=== PATIENT | male | born 1945 | race Caucasian/White ===

== ENCOUNTER 2019-06-16 10:47 | Day surgery (SDC) | payer OTHER ==
[~2019-06-16 10:47] MED LIST: Bupivacaine 0.5% 10 ML SDV ONE; Bupivacaine 0.5% 30 ML SDV ONE; Lactated Ringers 1,000 ML IV SCH; ceFAZolin 2 GM in Premix Bag 1 BAG IV SCH
[2019-06-16] MEDS ORDERED: fentaNYL 100 MCG/2 ML SDV ONE (12:18)
[2019-06-16] MEDS ORDERED: Propofol 200 MG/20 ML SDV ONE (12:18)
[2019-06-16] MEDS ORDERED: Ondansetron 4 MG/2 ML SDV ONE (12:19)
[2019-06-16] MEDS ORDERED: Dexamethasone 4 MG/ML 5 ML MDV ONE (12:19)
[2019-06-16] MEDS ORDERED: Midazolam 1 MG/ML 2 ML SDV ONE (12:19)
--- NOTE | 2019-06-16 12:20 | PCM.PREANE ---
Preanesthetic Assessment - Anesthesia/Transfusion/Family Hx Anesthesia History: Prior Anesthesia Without Reaction Family History of Anesthesia Reaction: No Transfusion History: No Prior Transfusion(s) - Review of Systems General: No Symptoms Pulmonary: No Symptoms Cardiovascular: No Symptoms Neurological: No Symptoms - Physical Assessment NPO Status Date: 06/15/19 Vital Signs: Last Vital Signs Temp 97.5 F 06/16/19 11:12 Pulse 94 06/16/19 11:12 Resp 16 06/16/19 11:12 BP 139/74 06/16/19 11:12 Pulse Ox 97 06/16/19 11:12 Height: 5 ft 7 in Weight: 112.037 kg ASA Class: 3 Mental Status: Alert & Oriented x3 Airway Class: Mallampati = 3 (PMH: dm2- not taking metformin, trying diet controll, htn, hld, JASPAL- not yet fit with CPAP mask- is at high risk for postoperative respiratory complications, hyperuricemia, [id number]) Dentition: Reports: Broken Tooth/Teeth, Missing Tooth/Teeth, Caries ROM/Head Extension: Full Lungs: Clear to Auscultation, Normal Respiratory Effort Cardiovascular: Regular Rate, Regular Rhythm - Allergies Allergies/Adverse Reactions: Allergies Allergy/AdvReac Type Severity Reaction Status Date / Time No Known Allergies Allergy Verified 06/11/19 11:46 - Blood Blood Available: No - Anesthesia Plan Pre-Op Medication Ordered: None - Acknowledgements Anesthesia Type Planned: Spinal Pt an Appropriate Candidate for the Planned Anesthesia: Yes Alternatives and Risks of Anesthesia Discussed w Pt/Guardian: Yes Pt/Guardian Understands and Agrees with Anesthesia Plan: Yes Additional Comments: anes prob list: dm2- on metformin, htn, hld, JASPAL by polysomnography- has been refered for CPAP equipment, CKD3-eGFR=54, plan: spinal with sedation PreAnesthesia Questionnaire HEENT History: Reports: Hard of Hearing, Other (See Below) Other HEENT History: uses reading glasses, has hearing aides but doesn't wear them Cardiovascular History: Reports: Hypertension, Other (See Below) Other Cardiovascular History: possible old [place] per EKG Respiratory History: Reports: Sleep Apnea Other Respiratory History: was just tested for sleep apnea- will not receive a CPAP until next month Gastrointestinal History: Reports: None Musculoskeletal History: Reports: Fracture, Gout Other Musculoskeletal History: hx of fx finger Neurological History: Reports: Migraines Other Neuro History: migraines as a child- not since Psychiatric History: Reports: Depression Endocrine/Metabolic History: Reports: Obesity/BMI 30+ Other Endocrine/Metabolic History: states "borderline diabetic" diet controlled - Past Surgical History GI Surgical History: Reports: Appendectomy - SUBSTANCE USE Smoking Status *Q: Former Smoker Tobacco Use Within Last Twelve Months: No Days Per Week of Alcohol Use: 7 Number of Drinks Per Day: 3 Total Drinks Per Week: 21 Recreational Drug Use History: No - HOME MEDS Home Medications: Home Meds Allopurinol [Zyloprim] 300 mg PO DAILY 06/16/19 [History] Losartan [Cozaar] 25 mg PO DAILY 06/16/19 [History] Meloxicam [Mobic] 15 mg PO DAILY 06/16/19 [History] [place]-3/DHA/Epa/Fish Oil [Fish Oil 1,000 mg Softgel] 1,000 mg PO BID 06/16/19 [ History] Simvastatin 80 mg PO DAILY 06/16/19 [History] Testosterone 20.25 mg TOP DAILY 06/16/19 [History] amLODIPine Besylate [Amlodipine Besylate] 10 mg PO DAILY 06/16/19 [History] - CURRENT (IN HOUSE) MEDS Current Meds: Current Medications Cefazolin Sodium/Dextrose 2 gm (/ Premix) 50 mls @ 100 mls/hr IV ONETIME ENRIQUE Lactated Ringer's (Ringers, Lactated) 1,000 mls @ 100 mls/hr IV ASDIRECTED ENRIQUE Last Admin: 06/16/19 11:18 Dose: 100 mls/hr Discontinued Medications Bupivacaine HCl (Marcaine 0.5%) Confirm Administered Dose 30 ml .ROUTE .STK-MED ONE Stop: 06/16/19 07:38 Bupivacaine HCl (Sensorcaine-Mpf 0.5%) Confirm Administered Dose 10 ml .ROUTE .STK-MED ONE Stop: 06/16/19 08:51 Tranexamic Acid (Cyklokapron) 2,000 mg IV ONETIME ONE Stop: 06/16/19 11:31 Tranexamic Acid (Cyklokapron) Confirm Administered Dose 2,000 mg .ROUTE .STK- MED ONE Stop: 06/16/19 08:51
[2019-06-16] MEDS ORDERED: Sodium Chloride 0.9% 0 ML ONE (12:23)
[2019-06-16] MEDS ORDERED: ceFAZolin 1 GM Vial ONE (12:23)
== END 2019-06-16 12:45 | disposition home or self-care (01) ==
LOC: MW.MS 10:47 → MW.SDS 10:47 → UNDOADMIN 10:47 → UNDODISIN 12:45 → MW.SDS 12:45
PROVIDERS: ATTEND Orthopaedic Surgery
DX: M16.11 Unilateral primary osteoarthritis, right hip (principal); E11.9 Type 2 diabetes mellitus without complications; I10 Essential (primary) hypertension; E78.5 Hyperlipidemia, unspecified; G47.33 Obstructive sleep apnea (adult) (pediatric); M10.9 Gout, unspecified; G43.909 Migraine, unspecified, not intractable, without status migrainosus; F32.9 Major depressive disorder, single episode, unspecified; E66.9 Obesity, unspecified; Z87.891 Personal history of nicotine dependence; Z53.8 Procedure and treatment not carried out for other reasons; Z79.84 Long term (current) use of oral hypoglycemic drugs; Z68.38 Body mass index [BMI] 38.0-38.9, adult
CPT/HCPCS: 36415; 86850; 86900; 86901; J7120; J0690; J1100; J2001; J2250; J2405; J2704; J3010; J3490

== ENCOUNTER 2019-09-01 06:36 | Inpatient (IN) | payer OTHER ==
[2019-09-01] MEDS ORDERED: Propofol 200 MG/20 ML SDV ONE ×2 (06:56→09:04)
[2019-09-01] MEDS ORDERED: fentaNYL 100 MCG/2 ML SDV ONE (06:57)
[2019-09-01] MEDS ORDERED: ceFAZolin 2 GM in Premix Bag 1 BAG IV SCH (07:00)
[2019-09-01] MEDS ORDERED: ceFAZolin 1 GM Vial ONE (07:01)
--- NOTE | 2019-09-01 07:08 | PCM.PREANE ---
Preanesthetic Assessment - Anesthesia/Transfusion/Family Hx Anesthesia History: Prior Anesthesia Without Reaction Family History of Anesthesia Reaction: No Transfusion History: No Prior Transfusion(s) Intubation History: Unknown - Review of Systems General: No Symptoms Pulmonary: No Symptoms Cardiovascular: No Symptoms Gastrointestinal: No Symptoms Neurological: No Symptoms Other: Reports: None - Physical Assessment Vital Signs: Last Vital Signs Temp 36.6 C 09/01/19 06:53 Pulse 79 09/01/19 06:53 Resp 16 09/01/19 06:53 BP 154/90 H 09/01/19 06:53 Pulse Ox 96 09/01/19 06:53 ASA Class: 3 Mental Status: Alert & Oriented x3 Airway Class: Mallampati = 3 Dentition: Reports: Broken Tooth/Teeth (multiple), Missing Tooth/Teeth (multiple ) Thyro-Mental Finger Breadths: 2 Mouth Opening Finger Breadths: 2 ROM/Head Extension: Limited/Partial Lungs: Clear to Auscultation, Normal Respiratory Effort Cardiovascular: Regular Rate, Regular Rhythm - Allergies Allergies/Adverse Reactions: Allergies Allergy/AdvReac Type Severity Reaction Status Date / Time lisinopril Allergy Cannot Verified 08/26/19 12:07 Remember - Blood Blood Available: No - Anesthesia Plan Pre-Op Medication Ordered: None - Acknowledgements Anesthesia Type Planned: Spinal (general anesthesia problems) Pt an Appropriate Candidate for the Planned Anesthesia: Yes Alternatives and Risks of Anesthesia Discussed w Pt/Guardian: Yes Pt/Guardian Understands and Agrees with Anesthesia Plan: Yes PreAnesthesia Questionnaire HEENT History: Reports: Hard of Hearing, Other (See Below) Other HEENT History: uses reading glasses, has hearing aides but doesn't wear them Cardiovascular History: Reports: High Cholesterol, Hypertension, Other (See Below) Other Cardiovascular History: possible old [place] per EKG Respiratory History: Reports: Sleep Apnea Other Respiratory History: uses CPAP Gastrointestinal History: Reports: None Genitourinary History: Reports: BPH Musculoskeletal History: Reports: Back Pain, Chronic, Fracture, Gout Other Musculoskeletal History: hx of fx finger Neurological History: Reports: Migraines Other Neuro History: migraines as a child- not since Psychiatric History: Reports: Depression Endocrine/Metabolic History: Reports: Diabetes, Type II, Obesity/BMI 30+ Other Endocrine/Metabolic History: states "borderline diabetic" diet controlled - Past Surgical History Head Surgeries/Procedures: Reports: None GI Surgical History: Reports: Appendectomy - SUBSTANCE USE Smoking Status *Q: Former Smoker Tobacco Use Within Last Twelve Months: No Recreational Drug Use History: No - HOME MEDS Home Medications: Home Meds Losartan [Cozaar] 25 mg PO QAM 06/16/19 [History] Meloxicam [Mobic] 15 mg PO DAILY 06/16/19 [History] [place]-3/DHA/Epa/Fish Oil [Fish Oil 1,000 mg Softgel] 2,000 mg PO BID 06/16/19 [ History] Simvastatin 40 mg PO BEDTIME 06/16/19 [History] Testosterone 20.25 mg TOP DAILY 06/16/19 [History] allopurinoL [Zyloprim] 300 mg PO DAILY 06/16/19 [History] amLODIPine Besylate [Amlodipine Besylate] 10 mg PO BEDTIME 06/16/19 [History] Aspirin [Adult Low Dose Aspirin EC] 81 mg PO DAILY 08/26/19 [History] Terazosin [Hytrin] 0 cap PO BEDTIME 08/26/19 [History] - CURRENT (IN HOUSE) MEDS Current Meds: Current Medications Cefazolin Sodium/Dextrose 2 gm (/ Premix) 50 mls @ 100 mls/hr IV ONETIME ENRIQUE Lactated Ringer's (Ringers, Lactated) 1,000 mls @ 100 mls/hr IV ASDIRECTED ENRIQUE Tranexamic Acid (Cyklokapron) 2,000 mg IV ONETIME ONE Stop: 09/01/19 07:01 Discontinued Medications Fentanyl (Sublimaze) Confirm Administered Dose 100 mcg .ROUTE .STK-MED ONE Stop: 09/01/19 06:58 Propofol (Diprivan 20 Ml) Confirm Administered Dose 400 mg .ROUTE .STK-MED ONE Stop: 09/01/19 06:57
[2019-09-01] MEDS ORDERED: Phenylephrine/Normal Saline 100 MCG/ML 10 ML Syringe ONE (07:09)
[2019-09-01] MEDS: Lactated Ringers 1,000 ML IV SCH ×3 (07:17→23:55)
[2019-09-01] MEDS ORDERED: Midazolam 1 MG/ML 2 ML SDV ONE ×2 (07:18)
[2019-09-01] MEDS ORDERED: Ondansetron 4 MG/2 ML SDV ONE (07:18)
[2019-09-01 08:01] LABS: CARBON DIOXIDE,CO2 28.3 mmol/L (21.0-32.0); POTASSIUM,K 4.5 mmol/L (3.5-5.1)
[2019-09-01] MEDS ORDERED: Dermabond Prineo 1 Tube TOP ONE (08:44)
[2019-09-01] MEDS ORDERED: fentaNYL 100 MCG/2 ML SDV IVPUSH PRN (08:47)
--- NOTE | 2019-09-01 09:45 | PCM.OPNOTE ---
- General Post-Op/Procedure Note Date of Surgery/Procedure: 09/01/19 Operative Procedure(s): right anterior total hip arthroplasty Pre Op Diagnosis: right hip osteoarthritis Post-Op Diagnosis: same Anesthesia Technique: Moderate Sedation, Spinal Primary Surgeon: Matthew Maravilla Mai Operations Director: Selam Sanders Pathology: femoral head EBL in mLs: 300 Complications: none Condition: Good
[2019-09-01] MEDS ORDERED: Docusate Sodium 100 MG Cap PO PRN (10:01)
[2019-09-01] MEDS ORDERED: Ondansetron 4 MG/2 ML SDV IVPUSH PRN (10:01)
[2019-09-01] MEDS ORDERED: diphenhydrAMINE 25 MG Cap PO PRN (10:01)
[2019-09-01] MEDS ORDERED: Sodium Chloride 0.9% 2.5 ML Syringe FLUSH PRN (10:01)
[2019-09-01] MEDS ORDERED: Aluminum Hydroxide/Magnesium Hydroxide/Simethicone Susp 30 ML Cup PO PRN (10:01)
[2019-09-01] MEDS ORDERED: Sodium Chloride 0.9% 10 ML Syringe FLUSH PRN (10:01)
[2019-09-01] MEDS ORDERED: Bisacodyl 10 MG Supp RECTAL PRN (10:01)
[2019-09-01] MEDS ORDERED: Acetaminophen/HYDROcodone 325-7.5 MG Tab PO PRN (10:07)
--- NOTE | 2019-09-01 10:45 | PCM.POSTAN ---
POST ANESTHESIA ASSESSMENT - MENTAL STATUS Mental Status: Alert, Oriented - VITAL SIGNS Vital Signs: Last Vital Signs Temp 36.2 C 09/01/19 09:55 Pulse 75 09/01/19 10:31 Resp 13 09/01/19 10:31 BP 102/61 09/01/19 10:31 Pulse Ox 95 09/01/19 10:31 - RESPIRATORY Respiratory Status: Respiratory Rate WNL, Airway Patent, O2 Saturation Stable - CARDIOVASCULAR CV Status: Pulse Rate WNL, Blood Pressure Stable - GASTROINTESTINAL GI Status: No Symptoms - PAIN Pain Score: 0 - POST OP HYDRATION Hydration Status: Adequate & Stable - OBSERVATIONS Free Text/Narrative:: No anesthesia problems
[2019-09-01] MEDS: Ketorolac 15 MG/ML SDV IVPUSH SCH ×3 (11:02→23:13)
[2019-09-01] MEDS ORDERED: LORazepam 2 MG/ML SDV IVPUSH PRN (11:08)
--- NOTE | 2019-09-01 11:33 | PCM.HP.2 ---
H&P History of Present Illness - General Date of Service: 09/01/19 Admit Problem/Dx: Admission Diagnosis/Problem Admission Diagnosis/Problem Hip replacement planned Source of Information: Patient, Old Records History Limitations: Reports: No Limitations - Related Data Allergies/Adverse Reactions: Allergies Allergy/AdvReac Type Severity Reaction Status Date / Time lisinopril Allergy Cannot Verified 09/01/19 07:11 Remember Home Medications: Home Meds Losartan [Cozaar] 25 mg PO QAM 06/16/19 [History] Meloxicam [Mobic] 15 mg PO DAILY 06/16/19 [History] [place]-3/DHA/Epa/Fish Oil [Fish Oil 1,000 mg Softgel] 2,000 mg PO BID 06/16/19 [ History] Simvastatin 40 mg PO BEDTIME 06/16/19 [History] Testosterone 20.25 mg TOP DAILY 06/16/19 [History] allopurinoL [Zyloprim] 300 mg PO DAILY 06/16/19 [History] amLODIPine Besylate [Amlodipine Besylate] 10 mg PO BEDTIME 06/16/19 [History] Aspirin [Adult Low Dose Aspirin EC] 81 mg PO DAILY 08/26/19 [History] Terazosin [Hytrin] 0 cap PO BEDTIME 08/26/19 [History] Past Medical History HEENT History: Reports: Hard of Hearing, Other (See Below) Other HEENT History: uses reading glasses, has hearing aides but doesn't wear them Cardiovascular History: Reports: High Cholesterol, Hypertension, Other (See Below) Other Cardiovascular History: possible old [place] per EKG Respiratory History: Reports: Sleep Apnea Other Respiratory History: uses CPAP Gastrointestinal History: Reports: None Genitourinary History: Reports: BPH Musculoskeletal History: Reports: Back Pain, Chronic, Fracture, Gout Other Musculoskeletal History: hx of fx finger Neurological History: Reports: Migraines Other Neuro History: migraines as a child- not since Psychiatric History: Reports: Depression Endocrine/Metabolic History: Reports: Diabetes, Type II, Obesity/BMI 30+ Other Endocrine/Metabolic History: states "borderline diabetic" diet controlled - Past Surgical History Head Surgeries/Procedures: Reports: None GI Surgical History: Reports: Appendectomy Social & Family History - Tobacco Use Smoking Status *Q: Former Smoker Tobacco Use Comment: quit 1979 - Recreational Drug Use Recreational Drug Use: No Drug Use in Last 12 Months: No Exam - Vital Signs Vital Signs: Last Vital Signs Temp 97.2 F 09/01/19 09:55 Pulse 75 09/01/19 10:31 Resp 13 09/01/19 10:31 BP 102/61 09/01/19 10:31 Pulse Ox 95 09/01/19 10:31 Weight: 117.934 kg - Patient Data Lab Results Last 24 hrs: Laboratory Results - last 24 hr 09/01/19 09/01/19 Range/Units 07:35 07:35 WBC 4.69 (4.0-11.0) K/uL RBC 4.37 L (4.50-5.90) M/uL Hgb 13.6 (13.0-17.0) g/dL Hct 40.0 (38.0-50.0) % MCV 91.5 (80.0-98.0) fL MCH 31.1 (27.0-32.0) pg MCHC 34.0 (31.0-37.0) g/dL RDW Std Deviation 44.7 (28.0-62.0) fl RDW Coeff of [place] 14 (11.0-15.0) % Plt Count 135 L (150-400) K/uL MPV 9.80 (7.40-12.00) fL Nucleated RBC % 0.0 /100WBC Nucleated RBCs # 0 K/uL Sodium 143 (136-148) mmol/L Potassium 4.5 (3.5-5.1) mmol/L Chloride 106 (98-107) mmol/L Carbon Dioxide 28.3 (21.0-32.0) mmol/L BUN 18 (7.0-18.0) mg/dL Creatinine 1.2 (0.8-1.3) mg/dL Est Cr Clr Drug Dosing 50.49 mL/min Estimated GFR (MDRD) 59.2 ml/min Glucose 111 H (74-106) mg/dL Calcium 8.8 (8.5-10.1) mg/dL Result Diagrams: 09/01/19 07:35 09/01/19 07:35 Sepsis Event Note - Evaluation Sepsis Screening Result: No Definite Risk - Focused Exam Vital Signs: Vital Signs Temp Pulse Resp BP Pulse Ox 09/01/19 10:31 75 13 102/61 95 09/01/19 10:26 68 14 106/71 95 09/01/19 10:21 70 12 109/67 93 L 09/01/19 10:16 69 16 110/75 100 09/01/19 10:11 73 13 114/73 99 09/01/19 10:06 76 16 113/70 99 09/01/19 10:01 73 16 110/66 99 09/01/19 09:55 97.2 F 71 16 104/64 97 09/01/19 06:53 97.9 F 79 16 154/90 H 96 Date Exam was Performed: 09/01/19 Time Exam was Performed: 11:33 Orders Last 24hrs: Active Orders 24 hr Category Date Time Status Patient Status [ADT] Routine ADT 09/01/19 09:45 Active Antiembolic Devices [RC] PER UNIT ROUTINE Care 09/01/19 06:59 Active Blood Glucose Check, Bedside [RC] TIDAC Care 09/01/19 11:12 Active CIWAA Assessment [RC] Q4H Care 09/01/19 11:08 Active Communication Order [RC] PRN Care 09/01/19 10:01 Active Cooling Warming Measures [RC] ASDIRECTED Care 09/01/19 10:01 Active Neurovascular Check [RC] Q2HR Care 09/01/19 10:01 Active Notify Provider Consults [RC] ASDIRECTED Care 09/01/19 10:14 Active Notify Provider Vital Signs [RC] ASDIRECTED Care 09/01/19 10:01 Active RT Incentive Spirometry [RC] Q1HWA Care 09/01/19 10:01 Active Vital Signs [RC] PER UNIT ROUTINE Care 09/01/19 10:01 Active Wound Care [RC] DAILY Care 09/01/19 10:01 Active Consult to Physician [CONS] Routine Cons 09/01/19 10:07 Active PT Evaluation and Treatment [CONS] Routine Cons 09/01/19 10:01 Active Regular Diet [DIET] Diet 09/01/19 Lunch Active HEMOGLOBIN/HEMATOCRIT,HH [HEME] DAILY Lab 09/02/19 06:00 Ordered HEMOGLOBIN/HEMATOCRIT,HH [HEME] DAILY Lab 09/03/19 06:00 Ordered MG [MAGNESIUM] [CHEM] Routine Lab 09/01/19 07:35 Received Acetaminophen/HYDROcodone [[place] 325-7.5 MG] Med 09/01/19 10:07 Active 1 tab PO Q6H PRN Alum Hydrox/Mag Hydrox/Simeth [Mag-Al Plus] Med 09/01/19 10:01 Active 30 ml PO Q4H PRN Aspirin Med 09/02/19 09:00 Active 325 mg PO BID Docusate Sodium [Colace] Med 09/01/19 10:01 Active 100 mg PO BID PRN Famotidine [Pepcid] Med 09/02/19 09:00 Active 40 mg PO DAILY Folic Acid Med 09/01/19 21:00 Active 1 mg PO BEDTIME Insulin Aspart [NovoLOG] Med 09/01/19 11:30 Active See Protocol SUBCUT TIDAC Ketorolac [Toradol] Med 09/01/19 10:15 Active 15 mg IVPUSH Q6H LORazepam [Ativan] Med 09/01/19 11:08 Active See Protocol IVPUSH Q4H PRN Lactated Ringers [Ringers, Lactated] 1,000 ml Med 09/01/19 07:00 Active IV ASDIRECTED Losartan [Cozaar] Med 09/02/19 09:00 Active 25 mg PO QAM Morphine Med 09/01/19 10:01 Active 1 - 2 mg IVPUSH Q3H PRN Ondansetron [Zofran] Med 09/01/19 10:01 Active 4 mg IVPUSH Q6H PRN Pneumococcal 23-Valent Conjug [Pneumovax 23] Med 09/03/19 23:30 Once 25 mcg IM .ONCE ONE Sodium Chloride 0.9% [Saline Flush] Med 09/01/19 10:01 Active 10 ml FLUSH ASDIRECTED PRN Sodium Chloride 0.9% [Saline Flush] Med 09/01/19 10:01 Active 2.5 ml FLUSH ASDIRECTED PRN Terazosin [Hytrin] Med 09/01/19 21:00 Pending DOSE mg PO BEDTIME Thiamine [Vitamin B-1] Med 09/01/19 21:00 Active 100 mg PO BEDTIME allopurinoL [Zyloprim] Med 09/01/19 13:00 Active 300 mg PO DAILY amLODIPine [Norvasc] Med 09/01/19 21:00 Active 10 mg PO BEDTIME bisacodyL [Dulcolax] Med 09/01/19 10:01 Active 10 mg RECTAL DAILY PRN ceFAZolin [Ancef] 2 gm Med 09/01/19 16:00 Active Premix Bag 1 bag IV Q8H diphenhydrAMINE [Benadryl] Med 09/01/19 10:01 Active 25 - 50 mg PO Q6H PRN polyethylene glycoL 3350 [MiraLAX] Med 09/02/19 09:00 Active 17 gm PO DAILY Convert IV to Saline Lock [OM.PC] PRN Oth 09/01/19 10:15 Ordered Convert IV to Saline Lock [OM.PC] PRN Oth 09/02/19 10:15 Ordered Ice Therapy [OM.PC] Routine Oth 09/01/19 10:01 Ordered Sequential Compression Device [OM.PC] Routine Oth 09/01/19 06:59 Ordered Resuscitation Status Routine Resus Stat 09/01/19 09:45 Ordered Medication Orders Hydrocodone Bitart/Acetaminophen ([place] 325-7.5 Mg) 1 tab PO Q6H PRN PRN Reason: Pain Al Hydroxide/Mg Hydroxide (Mag-Al Plus) 30 ml PO Q4H PRN PRN Reason: Indigestion Allopurinol (Zyloprim) 300 mg PO DAILY [facility] Amlodipine Besylate (Norvasc) 10 mg PO BEDTIME [facility] Aspirin (Aspirin) 325 mg PO BID ENRIQUE Bisacodyl (Dulcolax) 10 mg RECTAL DAILY PRN PRN Reason: Constipation Diphenhydramine HCl (Benadryl) 25 - 50 mg PO Q6H PRN PRN Reason: Itching Docusate Sodium (Colace) 100 mg PO BID PRN PRN Reason: Constipation Famotidine (Pepcid) 40 mg PO DAILY [facility] Folic Acid (Folic Acid) 1 mg PO BEDTIME [facility] Lactated Ringer's (Ringers, Lactated) 1,000 mls @ 100 mls/hr IV ASDIRECTED [facility] Last Infusion: 09/01/19 11:00 Dose: 100 mls/hr Admin: 09/01/19 07:17 Dose: 100 mls/hr Cefazolin Sodium/Dextrose 2 gm (/ Premix) 50 mls @ 100 mls/hr IV Q8H [facility] Stop: 09/02/19 00:29 Insulin Aspart (Novolog) 0 unit SUBCUT TIDAC [facility]; Protocol Ketorolac Tromethamine (Toradol) 15 mg IVPUSH Q6H [facility] Stop: 09/02/19 05:00 Last Admin: 09/01/19 11:02 Dose: 15 mg Lorazepam (Ativan) 0 mg IVPUSH Q4H PRN; Protocol PRN Reason: CIWAA Losartan Potassium (Cozaar) 25 mg PO QAM ENRIQUE Morphine Sulfate (Morphine) 1 - 2 mg IVPUSH Q3H PRN PRN Reason: Pain Ondansetron HCl (Zofran) 4 mg IVPUSH Q6H PRN PRN Reason: Nausea/Vomiting Pneumococcal Polyvalent Vaccine (Pneumovax 23) 25 mcg IM .ONCE ONE Stop: 09/03/19 23:31 Polyethylene Glycol (Miralax) 17 gm PO DAILY ENRIQUE Sodium Chloride (Saline Flush) 10 ml FLUSH ASDIRECTED PRN PRN Reason: Keep Vein Open Sodium Chloride (Saline Flush) 2.5 ml FLUSH ASDIRECTED PRN PRN Reason: Keep Vein Open Terazosin HCl (Hytrin) mg PO BEDTIME ENRIQUE Thiamine HCl (Vitamin B-1) 100 mg PO BEDTIME ENRIQUE
[2019-09-01] MEDS: Allopurinol 300 MG Tab PO SCH (12:01)
[2019-09-01] MEDS: Insulin Aspart 100 Units/ML 3 ML Pen SUBCUT SCH ×2 (12:06→18:10)
--- NOTE | 2019-09-01 13:34 | PCM.CONS ---
H&P History of Present Illness - General Date of Service: 09/01/19 Admit Problem/Dx: Admission Diagnosis/Problem Admission Diagnosis/Problem Hip replacement planned Source of Information: Patient, Old Records History Limitations: Reports: No Limitations - History of Present Illness Initial Comments - Free Text/Narative: This 74 year old male with pmh of HTN, dyslipidemia, diet controlled DM and alcohol dependence presented today for R anterior hip arthroplasty with Dr Rodarte. Hospitalist service consulted for medical management of co-morbidities. Donaldo recently arrived to his room from PACU. He is alert and oriented. He denies any pain currently. Denies chest pain or SOB. No abdominal discomfort or nausea. He reports history of DM but has controlled diet with cutting out sweets and this has helped A1c significantly per his report. He reports he saw cardiology prior to surgery and reported everything looked ok. He denies chest pain with activity and can ambulate without cardiac symptoms. He does report drinking 3-5 whiskey drinks daily, sometimes more. He denies alcohol withdrawal symptoms when he does not drink. No history of stopping alcohol use and no history of seizures without alcohol. He denies tobacco use and no recreational drug use. - Related Data Allergies/Adverse Reactions: Allergies Allergy/AdvReac Type Severity Reaction Status Date / Time lisinopril Allergy Cannot Verified 09/01/19 07:11 Remember Home Medications: Home Meds Losartan [Cozaar] 25 mg PO QAM 06/16/19 [History] Meloxicam [Mobic] 15 mg PO DAILY 06/16/19 [History] [place]-3/DHA/Epa/Fish Oil [Fish Oil 1,000 mg Softgel] 2,000 mg PO BID 06/16/19 [ History] Simvastatin 40 mg PO BEDTIME 06/16/19 [History] Testosterone 20.25 mg TOP DAILY 06/16/19 [History] allopurinoL [Zyloprim] 300 mg PO DAILY 06/16/19 [History] amLODIPine Besylate [Amlodipine Besylate] 10 mg PO BEDTIME 06/16/19 [History] Aspirin [Adult Low Dose Aspirin EC] 81 mg PO DAILY 08/26/19 [History] Terazosin [Hytrin] 0 cap PO BEDTIME 08/26/19 [History] Past Medical History HEENT History: Reports: Hard of Hearing, Other (See Below) Other HEENT History: uses reading glasses, has hearing aides but doesn't wear them Cardiovascular History: Reports: High Cholesterol, Hypertension, Other (See Below) Other Cardiovascular History: 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 Respiratory History: Reports: Sleep Apnea Other Respiratory History: uses CPAP Gastrointestinal History: Reports: None Genitourinary History: Reports: BPH Musculoskeletal History: Reports: Back Pain, Chronic, Fracture, Gout Other Musculoskeletal History: hx of fx finger Neurological History: Reports: Migraines Other Neuro History: migraines as a child- not since Psychiatric History: Reports: Depression Endocrine/Metabolic History: Reports: Diabetes, Type II, Obesity/BMI 30+ Other Endocrine/Metabolic History: states "borderline diabetic" diet controlled - Past Surgical History Head Surgeries/Procedures: Reports: None GI Surgical History: Reports: Appendectomy Social & Family History - Tobacco Use Smoking Status *Q: Former Smoker Tobacco Use Comment: quit 1979 - Alcohol Use Alcohol Use History: Yes Days Per Week of Alcohol Use: 7 Number of Drinks Per Day: 5 Total Drinks Per Week: 35 Alcohol Use Frequency: Daily - Recreational Drug Use Recreational Drug Use: No Drug Use in Last 12 Months: No H&P Review of Systems - Review of Systems: Review Of Systems: See Below General: Reports: No Symptoms. Denies: Fever, Chills, Weakness Pulmonary: Reports: No Symptoms. Denies: Shortness of Breath Cardiovascular: Reports: No Symptoms. Denies: Chest Pain Gastrointestinal: Reports: No Symptoms. Denies: Abdominal Pain, Black Stool, Bloody Stool, Nausea Genitourinary: Reports: No Symptoms Skin: Reports: No Symptoms Psychiatric: Reports: No Symptoms Neurological: Reports: No Symptoms Hematologic/Lymphatic: Reports: No Symptoms Immunologic: Reports: No Symptoms Exam - Exam Exam: See Below - Vital Signs Vital Signs: Last Vital Signs Temp 97.2 F 09/01/19 12:10 Pulse 60 09/01/19 12:10 Resp 18 09/01/19 12:10 BP 133/79 09/01/19 12:10 Pulse Ox 96 09/01/19 12:10 Weight: 117.934 kg - Exam General: Alert, Oriented, Cooperative HEENT: Conjunctiva Clear Lungs: Clear to Auscultation, Normal Respiratory Effort Cardiovascular: Regular Rate, Regular Rhythm, Normal S1, Normal S2 GI/Abdominal Exam: Normal Bowel Sounds, Soft, Non-Tender Extremities: Normal Inspection, Normal Range of Motion, Non-Tender, No Pedal Edema Neuro Extensive - Mental Status: Alert, Oriented x3 Neuro Extensive - Motor, Sensory, Reflexes: CN II-XII Intact. No: Tremor Psychiatric: Alert, Normal Affect, Normal Mood - Patient Data Lab Results Last 24 hrs: Laboratory Results - last 24 hr 09/01/19 09/01/19 09/01/19 Range/Units 07:35 07:35 07:35 WBC 4.69 (4.0-11.0) K/uL RBC 4.37 L (4.50-5.90) M/uL Hgb 13.6 (13.0-17.0) g/dL Hct 40.0 (38.0-50.0) % MCV 91.5 (80.0-98.0) fL MCH 31.1 (27.0-32.0) pg MCHC 34.0 (31.0-37.0) g/dL RDW Std Deviation 44.7 (28.0-62.0) fl RDW Coeff of [place] 14 (11.0-15.0) % Plt Count 135 L (150-400) K/uL MPV 9.80 (7.40-12.00) fL Nucleated RBC % 0.0 /100WBC Nucleated RBCs # 0 K/uL Sodium 143 (136-148) mmol/L Potassium 4.5 (3.5-5.1) mmol/L Chloride 106 (98-107) mmol/L Carbon Dioxide 28.3 (21.0-32.0) mmol/L BUN 18 (7.0-18.0) mg/dL Creatinine 1.2 (0.8-1.3) mg/dL Est Cr Clr Drug Dosing 50.49 mL/min Estimated GFR (MDRD) 59.2 ml/min Glucose 111 H (74-106) mg/dL POC Glucose (60-110) mg/dL Calcium 8.8 (8.5-10.1) mg/dL Magnesium 1.8 (1.8-2.4) mg/dL 09/01/19 Range/Units 12:05 WBC (4.0-11.0) K/uL RBC (4.50-5.90) M/uL Hgb (13.0-17.0) g/dL Hct (38.0-50.0) % MCV (80.0-98.0) fL MCH (27.0-32.0) pg MCHC (31.0-37.0) g/dL RDW Std Deviation (28.0-62.0) fl RDW Coeff of [place] (11.0-15.0) % Plt Count (150-400) K/uL MPV (7.40-12.00) fL Nucleated RBC % /100WBC Nucleated RBCs # K/uL Sodium (136-148) mmol/L Potassium (3.5-5.1) mmol/L Chloride (98-107) mmol/L Carbon Dioxide (21.0-32.0) mmol/L BUN (7.0-18.0) mg/dL Creatinine (0.8-1.3) mg/dL Est Cr Clr Drug Dosing mL/min Estimated GFR (MDRD) ml/min Glucose (74-106) mg/dL POC Glucose 93 (60-110) mg/dL Calcium (8.5-10.1) mg/dL Magnesium (1.8-2.4) mg/dL Result Diagrams: 09/01/19 07:35 09/01/19 07:35 Sepsis Event Note - Evaluation Sepsis Screening Result: No Definite Risk - Focused Exam Vital Signs: Vital Signs Temp Pulse Resp BP Pulse Ox 09/01/19 12:10 97.2 F 60 18 133/79 96 09/01/19 11:40 97.0 F 61 18 133/74 97 09/01/19 11:25 97.0 F 60 20 123/61 95 09/01/19 11:10 97.0 F 62 20 116/69 97 09/01/19 10:55 97.0 F 66 20 94/58 L 95 09/01/19 10:40 97.0 F 65 20 101/65 92 L 09/01/19 10:31 75 13 102/61 95 09/01/19 10:26 68 14 106/71 95 09/01/19 10:21 70 12 109/67 93 L 09/01/19 10:16 69 16 110/75 100 09/01/19 10:11 73 13 114/73 99 09/01/19 10:06 76 16 113/70 99 09/01/19 10:01 73 16 110/66 99 09/01/19 09:55 97.2 F 71 16 104/64 97 09/01/19 06:53 97.9 F 79 16 154/90 H 96 Date Exam was Performed: 09/01/19 Time Exam was Performed: 14:37 Consult PN Assessment/Plan POD#: 0 Procedures: Procedures ASSAY OF CREATININE (12/17/18) BLOOD TYPING SEROLOGIC ABO (06/16/19) BLOOD TYPING SEROLOGIC RH(D) (06/16/19) CT ABD & PELV 1/> REGNS (12/18/18) DRAIN/INJ JOINT/BURSA W/O US (09/02/18) NEEDLE LOCALIZATION BY XRAY (09/02/18) POLYSOM 6/>YRS CPAP 4/> PARM (03/26/18) RBC ANTIBODY SCREEN (06/16/19) ROUTINE VENIPUNCTURE (06/16/19) US EXAM ABDO BACK WALL SERRANO (08/10/17) US EXAM ABDOM COMPLETE (06/06/19) X-RAY EXAM CHEST 2 VIEWS (05/27/19) X-RAY EXAM HIP UNI 2-3 VIEWS (08/23/17) (1) S/P total hip arthroplasty SNOMED Code(s): 937091305127, 870720832271 Code(s): Z96.649 - PRESENCE OF UNSPECIFIED ARTIFICIAL HIP JOINT Current Visit: Yes Qualifiers: Laterality: right Qualified Code(s): Z96.641 - Presence of right artificial hip joint (2) Borderline diabetes mellitus SNOMED Code(s): 116813276 Code(s): R73.03 - PREDIABETES Current Visit: Yes (3) HTN (hypertension) SNOMED Code(s): 81795478 Code(s): I10 - ESSENTIAL (PRIMARY) HYPERTENSION Current Visit: Yes (4) Dyslipidemia SNOMED Code(s): 201196969 Code(s): E78.5 - HYPERLIPIDEMIA, UNSPECIFIED Current Visit: Yes (5) Hx of right bundle branch block SNOMED Code(s): 365695856 Code(s): Z86.79 - PERSONAL HISTORY OF OTHER DISEASES OF THE CIRCULATORY SYSTEM Current Visit: Yes (6) Alcohol use SNOMED Code(s): 072812 Code(s): Z72.89 - OTHER PROBLEMS RELATED TO LIFESTYLE Current Visit: Yes Problem List Initiated/Reviewed/Updated: Yes My Orders Last 24 Hours: My Active Orders 09/01/19 11:08 CIWAA Assessment [RC] Q4H LORazepam [Ativan] See Protocol IVPUSH Q4H PRN 09/01/19 11:12 Blood Glucose Check, Bedside [] TIDA 09/01/19 11:30 Insulin Aspart [NovoLOG] See Protocol SUBCUT TIDAC 09/01/19 21:00 Folic Acid 1 mg PO BEDTIME Thiamine [Vitamin B-1] 100 mg PO BEDTIME Plan: This 74 year old male admitted with R anterior MARIO. Hospitalist service consulted to manage co-morbidities 1. S/SP R anterior MARIO: Per Orthopedics 2. Alcohol abuse: Concern for possible withdrawal during stay. Monitor CIWAA every 4 hours. Ativan per protocol. Thiamine and folic acid supplementation. Encourage sobriety especially with pain medication. Monitor NSAID use, may consider adding PPI if needed on discharge. 3. HTN: Stable, continue Amlodipine and Losartan. Continue statin. VTE prophylaxis: Recommended with deemed appropriate by Orthopedics.
[2019-09-01] MEDS: Morphine 2 MG/ML Syringe IVPUSH PRN ×3 (13:45→20:28)
[2019-09-01] MEDS: ceFAZolin 2 GM in Premix Bag 1 BAG IV SCH ×2 (15:39→23:14)
--- NOTE | 2019-09-01 16:11 | OR ---
SURGEON: Matthew Rodarte MD DATE OF PROCEDURE: 09/01/2019 V BELT INSPECTOR: PREETI Jarvis REASON V BELT INSPECTOR WAS NECESSARY: Utility Bill Collection Clerk was required for patient transportation, positioning, retraction, dislocating and relocating the hip and closing. PREOPERATIVE DIAGNOSIS: Right hip osteoarthritis. POSTOPERATIVE DIAGNOSIS: Right hip osteoarthritis. OPERATION PERFORMED: Right anterior total hip arthroplasty. ANESTHESIA: Spinal anesthesia. COMPLICATION: None. ESTIMATED BLOOD LOSS: 300 mL. SPECIMENS: Femoral head. IMPLANTS: Daniel Continuum trabecular metal shell with cluster holes, 58 mm outer diameter; Vivacit-E neutral liner 36 mm inner diameter; Avenir Cruz stem lateral uncemented size 3; BIOLOX delta ceramic femoral head 36 mm diameter, 0 neck length. INDICATIONS: The patient is a 74-year-old male with severe arthritis. He has failed conservative management, modification therapy, and injections. He has chronic pain on a daily basis, hindering activities and ADLs. He wished to undergo replacement. He understands the risks, benefits, alternatives, and complications of the procedure including, but not limited to infection, neurovascular injury, continued pain, DVT, PE, stroke, NC, , leg-length discrepancy, fracture, dislocation, and he wished to proceed. He received aspirin postoperatively for DVT prophylaxis. PROCEDURE: The patient was seen in the preoperative area. Operative extremity was marked. The patient was transferred to the operating room, where spinal anesthetic was given. He was placed supine on the [place] table and sedation given. Legs were placed in leg bars with a narrow perineal post. Right hip was prepped and draped in usual sterile fashion using alcohol followed by ChloraPrep with [place] covering. A formal time-out was taken, identifying the correct patient, procedure, and extremity. An 8 cm incision starting just lateral to the ASIS and going obliquely down the femur was made. Dissection was carried down through the subcutaneous tissues. Hemostasis was obtained. The fascia overlying the TFL lateral to lateral femoral cutaneous nerve was opened. The interval between the TFL and sartorius and deep between the abductors and rectus was opened. The anterior vessels were coagulated, and the vastus lateralis fascia was opened. A deep [place] retractor was placed. Indirect head of the rectus was released, and the capsule was held and tagged with two sutures. Deep retractors placed. Neck was cut from the saddle region 1 cm from lesser trochanter and the head was removed. There was severe arthritis of the hip with severe synovitis, so a synovectomy was performed. The labral remnants and pulvinar were removed releasing the inferior capsule, but preserving the iliopsoas tendon. Head measured approximately 54 mm. Sequential reaming from 52 up to 58 mm going slightly superomedial was made. After planing the bed to make sure it was level and irrigated, a Continuum trabecular metal shell with cluster holes was placed in 10 degrees of anteversion and 40 degrees of abduction. It had excellent press-fit. There had been noted to be good bleeding cancellous bone. No screw was needed as there was no uncovering anteriorly. Neutral liner was impacted. The femoral lift was placed. The leg was externally rotated, abducted, and extended. The superior capsule, obturator internus, and piriformis were released. Central canal finer was utilized, and the hip was sequentially broached from a starter rasp up to a size 4. This sat slightly proud. Hip was trial reduced with a lateral offset based on preoperative templating with a 0 head. Printed overlay technique showed the offset to be slightly increased and leg length to be long of about almost 1 cm. The hip was dislocated. The trial component was removed. The final 3 lateral stem was impacted following the [place] version. This had excellent press-fit. It was trial reduced with the +3.5 and 0. 0 with the lateral neck showed equal leg lengths and offset compared to the opposite side. There was no shuck. The hip was stable to range of motion. The hip was dislocated. After cleaning the [place] taper, the final 36 mm head and 0 neck length ceramic head was impacted. It was relocated. Two tag sutures tied together. The wound was irrigated. Fascia was closed with #1 Vicryl, subcutaneous tissues with 2-0 STRATAFIX, and skin with running 4-0 Monocryl. Dermabond tape and Aquacel dressing were placed. The patient was transferred to recovery room in stable condition. Sponge and needle counts were correct at the end of the case. There were no complications. NIRMALA / HAYLEY /[id number]
[2019-09-01] MEDS: Acetaminophen/HYDROcodone 325-7.5 MG Tab PO PRN (18:54)
[2019-09-01] MEDS ORDERED: Folic Acid 1 MG Tab PO SCH (21:00)
[2019-09-01] MEDS ORDERED: Thiamine 100 MG Tab PO SCH (21:00)
[2019-09-01] MEDS ORDERED: amLODIPine 5 MG Tab PO SCH (21:00)
[2019-09-01] MEDS ORDERED: Terazosin 5 MG Cap PO SCH (21:00)
[2019-09-02] MEDS: Acetaminophen/HYDROcodone 325-7.5 MG Tab PO PRN ×2 (02:22→11:36)
[2019-09-02] MEDS: Ketorolac 15 MG/ML SDV IVPUSH SCH (05:19)
[2019-09-02 06:55] LABS: CARBON DIOXIDE,CO2 29.7 mmol/L (21.0-32.0); POTASSIUM,K 4.5 mmol/L (3.5-5.1)
[2019-09-02] MEDS: Insulin Aspart 100 Units/ML 3 ML Pen SUBCUT SCH ×2 (06:59→11:26)
[2019-09-02] MEDS ORDERED: Sodium Chloride 0.9% 10 ML Syringe FLUSH PRN (07:17)
[2019-09-02] MEDS ORDERED: Sodium Chloride 0.9% 2.5 ML Syringe FLUSH PRN (07:17)
--- NOTE | 2019-09-02 07:18 | PCM.SN ---
- Free Text/Narrative Note: Subjective: doing well, pain controlled. has ambulated. tolerating oral. no CP/ SOB. Objective: afebrile, vital signs stable right hip - dressing clean/dry/intact, minimal swelling in thigh, no swelling distally, no drainage. 2+ DP bilaterally. normal sensation and motor distally Hgb 11.3 Assessment/plan: - full weight bearing, PT, walker - avoid hyperextension with external rotation - leave dressing on, may shower - ecotrin/SCDs for DVT prophylaxis - to home today
[2019-09-02] MEDS: Allopurinol 300 MG Tab PO SCH (08:31)
[2019-09-02] MEDS ORDERED: Losartan 50 MG Tab PO SCH (09:00)
[2019-09-02] MEDS ORDERED: Famotidine 20 MG Tab PO SCH (09:00)
[2019-09-02] MEDS ORDERED: Polyethylene Glycol 3350 Powder 17 GM Packet PO SCH (09:00)
[2019-09-02] MEDS ORDERED: Aspirin 325 MG Tab.EC PO SCH (09:00)
--- NOTE | 2019-09-02 09:52 | PCM.CONSN ---
- General Info Date of Service: 09/02/19 Admission Dx/Problem (Free Text): Admission Diagnosis/Problem Admission Diagnosis/Problem Hip replacement planned Subjective Update: Feeling ok this morning no chest pain or concerns. R eye itching and dry. Functional Status: Reports: Pain Controlled, Tolerating Diet, Ambulating, Urinating - Review of Systems HEENT: Reports: Other (itchy R eye). Denies: Eye Pain Pulmonary: Reports: No Symptoms. Denies: Shortness of Breath Cardiovascular: Reports: No Symptoms. Denies: Chest Pain Genitourinary: Reports: No Symptoms. Denies: Dysuria, Frequency, Burning Musculoskeletal: Reports: No Symptoms Skin: Reports: No Symptoms Neurological: Reports: No Symptoms Psychiatric: Reports: No Symptoms - Patient Data Vitals - Most Recent: Last Vital Signs Temp 97.6 F 09/02/19 07:50 Pulse 81 09/02/19 07:50 Resp 18 09/02/19 07:50 BP 115/57 L 09/02/19 07:50 Pulse Ox 90 L 09/02/19 07:50 Weight - Most Recent: 117.934 kg I&O - Last 24 Hours: Intake & Output 09/01/19 09/02/19 09/02/19 22:59 06:59 14:59 Intake Total 100 3650 120 Output Total 400 400 Balance -300 3250 120 Lab Results Last 24 Hours: Laboratory Results - last 24 hr 09/01/19 09/01/19 09/01/19 Range/Units 07:35 12:05 16:45 Hgb (13.0-17.0) g/dL Hct (38.0-50.0) % Sodium (136-148) mmol/L Potassium (3.5-5.1) mmol/L Chloride (98-107) mmol/L Carbon Dioxide (21.0-32.0) mmol/L BUN (7.0-18.0) mg/dL Creatinine (0.8-1.3) mg/dL Est Cr Clr Drug Dosing mL/min Estimated GFR (MDRD) ml/min Glucose (74-106) mg/dL POC Glucose 93 89 (60-110) mg/dL Calcium (8.5-10.1) mg/dL Magnesium 1.8 (1.8-2.4) mg/dL 09/02/19 09/02/19 09/02/19 Range/Units 06:12 06:12 06:37 Hgb 11.3 L (13.0-17.0) g/dL Hct 34.3 L (38.0-50.0) % Sodium 141 (136-148) mmol/L Potassium 4.5 (3.5-5.1) mmol/L Chloride 105 (98-107) mmol/L Carbon Dioxide 29.7 (21.0-32.0) mmol/L BUN 22 H (7.0-18.0) mg/dL Creatinine 1.5 H (0.8-1.3) mg/dL Est Cr Clr Drug Dosing 40.39 mL/min Estimated GFR (MDRD) 45.7 ml/min Glucose 132 H (74-106) mg/dL POC Glucose 129 H (60-110) mg/dL Calcium 7.9 L (8.5-10.1) mg/dL Magnesium 1.6 L (1.8-2.4) mg/dL Med Orders - Current: Current Medications Hydrocodone Bitart/Acetaminophen ([place]ob[place] 325-7.5 Mg) 1 - 2 tab PO Q6H PRN PRN Reason: Pain Last Admin: 09/02/19 02:22 Dose: 2 tab Al Hydroxide/Mg Hydroxide (Mag-Al Plus) 30 ml PO Q4H PRN PRN Reason: Indigestion Allopurinol (Zyloprim) 300 mg PO DAILY [facility] Last Admin: 09/02/19 08:31 Dose: 300 mg Amlodipine Besylate (Norvasc) 10 mg PO BEDTIME [facility] Last Admin: 09/01/19 20:26 Dose: 10 mg Artificial Tears (Refresh Plus 0.5%) 1 each EYEBOTH TID [facility] Aspirin (Ecotrin) 325 mg PO BID [facility] Last Admin: 09/02/19 08:31 Dose: 325 mg Bisacodyl (Dulcolax) 10 mg RECTAL DAILY PRN PRN Reason: Constipation Diphenhydramine HCl (Benadryl) 25 - 50 mg PO Q6H PRN PRN Reason: Itching Docusate Sodium (Colace) 100 mg PO BID PRN PRN Reason: Constipation Famotidine (Pepcid) 40 mg PO DAILY [facility] Last Admin: 09/02/19 08:31 Dose: 40 mg Folic Acid (Folic Acid) 1 mg PO BEDTIME [facility] Last Admin: 09/01/19 20:26 Dose: 1 mg Lactated Ringer's (Ringers, Lactated) 1,000 mls @ 100 mls/hr IV ASDIRECTED [facility] Last Admin: 09/01/19 23:55 Dose: 100 mls/hr Sodium Chloride (Normal Saline) 500 mls @ 999 mls/hr IV .BOLUS [facility] Insulin Aspart (Novolog) 0 unit SUBCUT TIDAC ENRIQUE; Protocol Last Admin: 09/02/19 06:59 Dose: Not Given Lorazepam (Ativan) 0 mg IVPUSH Q4H PRN; Protocol PRN Reason: CIWAA Morphine Sulfate (Morphine) 1 - 2 mg IVPUSH Q3H PRN PRN Reason: Pain Last Admin: 09/01/19 20:28 Dose: 2 mg Ondansetron HCl (Zofran) 4 mg IVPUSH Q6H PRN PRN Reason: Nausea/Vomiting Pneumococcal Polyvalent Vaccine (Pneumovax 23) 25 mcg IM .ONCE ONE Stop: 09/03/19 23:31 Polyethylene Glycol (Miralax) 17 gm PO DAILY [facility] Last Admin: 09/02/19 08:31 Dose: 17 gm Sodium Chloride (Saline Flush) 10 ml FLUSH ASDIRECTED PRN PRN Reason: Keep Vein Open Sodium Chloride (Saline Flush) 2.5 ml FLUSH ASDIRECTED PRN PRN Reason: Keep Vein Open Sodium Chloride (Saline Flush) 10 ml FLUSH ASDIRECTED PRN PRN Reason: Keep Vein Open Sodium Chloride (Saline Flush) 2.5 ml FLUSH ASDIRECTED PRN PRN Reason: Keep Vein Open Terazosin HCl (Hytrin) 5 mg PO BEDTIME [facility] Last Admin: 09/01/19 21:47 Dose: 5 mg Thiamine HCl (Vitamin B-1) 100 mg PO BEDTIME [facility] Last Admin: 09/01/19 20:26 Dose: 100 mg Discontinued Medications Hydrocodone Bitart/Acetaminophen ([place]bs 325-7.5 Mg) 1 tab PO Q6H PRN PRN Reason: Pain Last Admin: 09/01/19 12:01 Dose: 1 tab Cefazolin Sodium (Ancef) Confirm Administered Dose 2 gm .ROUTE .STK-MED ONE Stop: 09/01/19 07:02 Fentanyl (Sublimaze) Confirm Administered Dose 100 mcg .ROUTE .STK-MED ONE Stop: 09/01/19 06:58 Fentanyl (Sublimaze) 50 mcg IVPUSH Q5M PRN PRN Reason: Pain (severe 7-10) Stop: 09/01/19 13:00 Cefazolin Sodium/Dextrose 2 gm (/ Premix) 50 mls @ 100 mls/hr IV ONETIME [facility] Cefazolin Sodium/Dextrose 2 gm (/ Premix) 50 mls @ 100 mls/hr IV Q8H [facility] Stop: 09/02/19 00:29 Last Admin: 09/01/19 23:14 Dose: 100 mls/hr Ketorolac Tromethamine (Toradol) 15 mg IVPUSH Q6H [facility] Stop: 09/02/19 05:00 Last Admin: 09/02/19 05:19 Dose: 15 mg Lidocaine HCl (Xylocaine-Mpf 1%) Confirm Administered Dose 5 ml .ROUTE .STK-MED ONE Stop: 09/01/19 08:09 Losartan Potassium (Cozaar) 25 mg PO QAM [facility] Midazolam HCl (Versed 1 Mg/Ml) Confirm Administered Dose 2 mg .ROUTE .STK-MED ONE Stop: 09/01/19 07:19 Midazolam HCl (Versed 1 Mg/Ml) Confirm Administered Dose 2 mg .ROUTE .STK-MED ONE Stop: 09/01/19 07:19 Octyl Cyanoacrylate (Dermabond Prineo) 1 applic TOP .STK-MED ONE Stop: 09/01/19 08:45 Ondansetron HCl (Zofran) Confirm Administered Dose 4 mg .ROUTE .STK-MED ONE Stop: 09/01/19 07:19 Phenylephrine HCl (Phenylephrine In Ns 100 Mcg/Ml) Confirm Administered Dose 1 mg .ROUTE .STK-MED ONE Stop: 09/01/19 07:10 Propofol (Diprivan 20 Ml) Confirm Administered Dose 400 mg .ROUTE .STK-MED ONE Stop: 09/01/19 06:57 Propofol (Diprivan 20 Ml) Confirm Administered Dose 200 mg .ROUTE .STK-MED ONE Stop: 09/01/19 09:05 Tranexamic Acid (Cyklokapron) 2,000 mg IV ONETIME ONE Stop: 09/01/19 07:01 Last Admin: 09/01/19 11:06 Dose: Not Given - Exam General: Alert, Oriented, Cooperative Lungs: Clear to Auscultation, Normal Respiratory Effort Cardiovascular: Regular Rate, Regular Rhythm GI/Abdominal Exam: Normal Bowel Sounds, Soft, Non-Tender Extremities: Normal Inspection, Normal Range of Motion, Non-Tender Sepsis Event Note - Evaluation Sepsis Screening Result: No Definite Risk - Focused Exam Vital Signs: Vital Signs Temp Pulse Resp BP Pulse Ox 09/02/19 07:50 97.6 F 81 18 115/57 L 90 L 09/02/19 04:00 97.4 F 80 18 102/59 L 09/02/19 00:00 98.6 F 97 18 98/56 L 94 L Date Exam was Performed: 09/02/19 Time Exam was Performed: 09:50 Consult PN Assessment/Plan Procedures: Procedures ASSAY OF CREATININE (12/17/18) BLOOD TYPING SEROLOGIC ABO (06/16/19) BLOOD TYPING SEROLOGIC RH(D) (06/16/19) CT ABD & PELV 1/> REGNS (12/18/18) DRAIN/INJ JOINT/BURSA W/O US (09/02/18) NEEDLE LOCALIZATION BY XRAY (09/02/18) POLYSOM 6/>YRS CPAP 4/> PARM (03/26/18) RBC ANTIBODY SCREEN (06/16/19) ROUTINE VENIPUNCTURE (06/16/19) US EXAM ABDO BACK WALL SERRANO (08/10/17) US EXAM ABDOM COMPLETE (06/06/19) X-RAY EXAM CHEST 2 VIEWS (05/27/19) X-RAY EXAM HIP UNI 2-3 VIEWS (08/23/17) (1) S/P total hip arthroplasty SNOMED Code(s): 951512310666, 773484575419 Code(s): Z96.649 - PRESENCE OF UNSPECIFIED ARTIFICIAL HIP JOINT Current Visit: Yes Qualifiers: Laterality: right Qualified Code(s): Z96.641 - Presence of right artificial hip joint (2) Borderline diabetes mellitus SNOMED Code(s): 352784267 Code(s): R73.03 - PREDIABETES Current Visit: Yes (3) HTN (hypertension) SNOMED Code(s): 52976489 Code(s): I10 - ESSENTIAL (PRIMARY) HYPERTENSION Current Visit: Yes (4) Dyslipidemia SNOMED Code(s): 148753653 Code(s): E78.5 - HYPERLIPIDEMIA, UNSPECIFIED Current Visit: Yes (5) Hx of right bundle branch block SNOMED Code(s): 493803128 Code(s): Z86.79 - PERSONAL HISTORY OF OTHER DISEASES OF THE CIRCULATORY SYSTEM Current Visit: Yes (6) Alcohol use SNOMED Code(s): 307750 Code(s): Z72.89 - OTHER PROBLEMS RELATED TO LIFESTYLE Current Visit: Yes Problem List Initiated/Reviewed/Updated: Yes My Orders Last 24 Hours: My Active Orders 09/01/19 11:08 CIWAA Assessment [RC] Q4H LORazepam [Ativan] See Protocol IVPUSH Q4H PRN 09/01/19 11:12 Blood Glucose Check, Bedside [RC] TIDAC 09/01/19 11:30 Insulin Aspart [NovoLOG] See Protocol SUBCUT TIDAC 09/01/19 21:00 Folic Acid 1 mg PO BEDTIME Thiamine [Vitamin B-1] 100 mg PO BEDTIME 09/02/19 09:21 Carboxymethylcellulose Sodium [Refresh Plus 0.5%] 1 each EYEBOTH TID 09/02/19 10:00 Sodium Chloride 0.9% [Normal Saline] 500 ml IV .BOLUS 09/03/19 05:11 BASIC METABOLIC PANEL,BMP [CHEM] AM Plan: This 74 year old male admitted with R anterior MARIO. Hospitalist service consulted to manage co-morbidities 1. S/SP R anterior MARIO: Per Orthopedics 2. Alcohol abuse: Concern for possible withdrawal during stay. Monitor CIWAA every 4 hours. Ativan per protocol. Thiamine and folic acid supplementation. Encourage sobriety especially with pain medication. Monitor NSAID use, may consider adding PPI if needed on discharge. 3. HTN: Softer this morning, DIAMOND noted. Will give 500 ml bolus this morning. Hold ARB. If DC home, repeat BMP with PCP in 1 week. Stable, continue Amlodipine. Continue statin. VTE prophylaxis: Recommended with deemed appropriate by Orthopedics.
[2019-09-02] MEDS ORDERED: Sodium Chloride 0.9% 500 ML IV SCH (10:00)
[2019-09-02] MEDS: Carboxymethylcellulose Sodium 0.5% Ophth Soln 0.4 ML UD Box of 30 EYEBOTH SCH ×2 (10:24→13:54)
--- NOTE | 2019-09-02 10:25 | PCM48HPAN ---
Post Anesthesia Note - EVALUATION WITHIN 48HRS OF ANESTHETIC Vital Signs in Normal Range: Yes Patient Participated in Evaluation: Yes Respiratory Function Stable: Yes Airway Patent: Yes Cardiovascular Function Stable: Yes Hydration Status Stable: Yes Pain Control Satisfactory: Yes (Minimal ache at present.) Nausea and Vomiting Control Satisfactory: Yes Mental Status Recovered: Yes Vital Signs: Last Vital Signs Temp 36.4 C 09/02/19 07:50 Pulse 81 09/02/19 07:50 Resp 18 09/02/19 07:50 BP 115/57 L 09/02/19 07:50 Pulse Ox 90 L 09/02/19 07:50 - COMMENTS/OBSERVATIONS Free Text/Narrative:: Doing well. No problems at present.
--- NOTE | 2019-09-02 11:43 | CR ---
EXAM DATE: 09/01/19 PATIENT'S AGE: 74 Hip: 3 fluoroscopic spot views were obtained of the hip. Comparison: No prior hip exam. Study shows placement of a right hip prosthesis. Underlying bony structures are grossly intact. Fluoroscopy time given as 31.4 seconds. Pressure: 1. Procedural study as noted above. Diagnostic code #2 This report was dictated in [place] Standard Time Report Signed by Proxy. GILMAR
--- NOTE | 2019-09-03 12:56 | PCM.DCSUM1 ---
Discharge Summary - Hospital Course Brief History: Patient was admitted for elective right hip replacement. Diagnosis: Stroke: No - Discharge Data Discharge Date: 09/02/19 Discharge Disposition: Home, Self-Care 01 Condition: Good - Referral to Home Health Primary Care Physician: [place] Maira Cardenas - Patient Summary/Data Operative Procedure(s) Performed: right anterior total hip arthroplasty Consults: Consultations 09/01/19 10:01 PT Evaluation and Treatment [CONS] Routine 09/01/19 10:07 Consult to Physician [CONS] Routine Hospital Course: Patient underwent uneventful hip replacement. Postoperatively he was admitted to the floor where his diet was advanced, and he participated in physical therapy with full weightbearing. He did well and was subsequently discharged home on postoperative day #1. - Patient Instructions Diet: Usual Diet as Tolerated Activity: Apply Ice, Full Weight Bearing, No Strenuous Activities Driving: Do Not Drive Showering/Bathing: May Shower Wound/Incision Care: Keep Operative Site/Wound Site Clean and Dry, Do NOT Change Dressing Notify Provider of: Fever, Swelling and Redness, Drainage - Discharge Plan *PRESCRIPTION DRUG MONITORING PROGRAM REVIEWED*: No *COPY OF PRESCRIPTION DRUG MONITORING REPORT IN PATIENT SRINATH: No Home Medications: Home Meds Losartan [Cozaar] 25 mg PO QAM 06/16/19 [History] Meloxicam [Mobic] 15 mg PO DAILY 06/16/19 [History] [place]-3/DHA/Epa/Fish Oil [Fish Oil 1,000 mg Softgel] 2,000 mg PO BID 06/16/19 [ History] Simvastatin 40 mg PO BEDTIME 06/16/19 [History] Testosterone 20.25 mg TOP DAILY 06/16/19 [History] allopurinoL [Zyloprim] 300 mg PO DAILY 06/16/19 [History] amLODIPine Besylate [Amlodipine Besylate] 10 mg PO BEDTIME 06/16/19 [History] Aspirin [Adult Low Dose Aspirin EC] 81 mg PO DAILY 08/26/19 [History] Terazosin [Hytrin] 5 mg PO BEDTIME 08/26/19 [History] Patient Handouts: Acetaminophen; Hydrocodone tablets or capsules, Total Hip Replacement, Care After, [id number], Aspirin capsules or tablets extended release Referrals: Selam Sanders NP [Nurse Practitioner] - 09/16/19 9:00 am Jordan Johnson NP [Ordering Only Provider] - (The [place] clinic will be contacting you for the appointment details. You should be be seen in 1 week to recheck your kidney functions. ) - Discharge Summary/Plan Comment DC Time >30 min.: No - Patient Data Vitals - Most Recent: Last Vital Signs Temp 36.2 C 09/02/19 12:19 Pulse 92 09/02/19 12:19 Resp 20 09/02/19 12:19 BP 145/76 H 09/02/19 12:19 Pulse Ox 94 L 09/02/19 12:19 Weight - Most Recent: 117.934 kg Med Orders - Current: Current Medications Discontinued Medications Hydrocodone Bitart/Acetaminophen ([place] 325-7.5 Mg) 1 tab PO Q6H PRN PRN Reason: Pain Last Admin: 09/01/19 12:01 Dose: 1 tab Hydrocodone Bitart/Acetaminophen ([place] 325-7.5 Mg) 1 - 2 tab PO Q6H PRN PRN Reason: Pain Last Admin: 09/02/19 11:36 Dose: 2 tab Al Hydroxide/Mg Hydroxide (Mag-Al Plus) 30 ml PO Q4H PRN PRN Reason: Indigestion Allopurinol (Zyloprim) 300 mg PO DAILY [facility] Last Admin: 09/02/19 08:31 Dose: 300 mg Amlodipine Besylate (Norvasc) 10 mg PO BEDTIME [facility] Last Admin: 09/01/19 20:26 Dose: 10 mg Artificial Tears (Refresh Plus 0.5%) 1 each EYEBOTH TID [facility] Last Admin: 09/02/19 13:54 Dose: 1 drop Aspirin (Ecotrin) 325 mg PO BID [facility] Last Admin: 09/02/19 08:31 Dose: 325 mg Bisacodyl (Dulcolax) 10 mg RECTAL DAILY PRN PRN Reason: Constipation Cefazolin Sodium (Ancef) Confirm Administered Dose 2 gm .ROUTE .STK-MED ONE Stop: 09/01/19 07:02 Diphenhydramine HCl (Benadryl) 25 - 50 mg PO Q6H PRN PRN Reason: Itching Docusate Sodium (Colace) 100 mg PO BID PRN PRN Reason: Constipation Famotidine (Pepcid) 40 mg PO DAILY [facility] Last Admin: 09/02/19 08:31 Dose: 40 mg Fentanyl (Sublimaze) Confirm Administered Dose 100 mcg .ROUTE .STK-MED ONE Stop: 09/01/19 06:58 Fentanyl (Sublimaze) 50 mcg IVPUSH Q5M PRN PRN Reason: Pain (severe 7-10) Stop: 09/01/19 13:00 Folic Acid (Folic Acid) 1 mg PO BEDTIME [facility] Last Admin: 09/01/19 20:26 Dose: 1 mg Cefazolin Sodium/Dextrose 2 gm (/ Premix) 50 mls @ 100 mls/hr IV ONETIME [facility] Lactated Ringer's (Ringers, Lactated) 1,000 mls @ 100 mls/hr IV ASDIRECTED [facility] Last Admin: 09/01/19 23:55 Dose: 100 mls/hr Cefazolin Sodium/Dextrose 2 gm (/ Premix) 50 mls @ 100 mls/hr IV Q8H [facility] Stop: 09/02/19 00:29 Last Admin: 09/01/19 23:14 Dose: 100 mls/hr Sodium Chloride (Normal Saline) 500 mls @ 999 mls/hr IV .BOLUS [facility] Last Admin: 09/02/19 10:25 Dose: 999 mls/hr Insulin Aspart (Novolog) 0 unit SUBCUT TIDAC [facility]; Protocol Last Admin: 09/02/19 11:26 Dose: Not Given Ketorolac Tromethamine (Toradol) 15 mg IVPUSH Q6H [facility] Stop: 09/02/19 05:00 Last Admin: 09/02/19 05:19 Dose: 15 mg Lidocaine HCl (Xylocaine-Mpf 1%) Confirm Administered Dose 5 ml .ROUTE .STK-MED ONE Stop: 09/01/19 08:09 Lorazepam (Ativan) 0 mg IVPUSH Q4H PRN; Protocol PRN Reason: CIWAA Losartan Potassium (Cozaar) 25 mg PO QAM [facility] Midazolam HCl (Versed 1 Mg/Ml) Confirm Administered Dose 2 mg .ROUTE .STK-MED ONE Stop: 09/01/19 07:19 Midazolam HCl (Versed 1 Mg/Ml) Confirm Administered Dose 2 mg .ROUTE .STK-MED ONE Stop: 09/01/19 07:19 Morphine Sulfate (Morphine) 1 - 2 mg IVPUSH Q3H PRN PRN Reason: Pain Last Admin: 09/01/19 20:28 Dose: 2 mg Octyl Cyanoacrylate (Dermabond Prineo) 1 applic TOP .STK-MED ONE Stop: 09/01/19 08:45 Ondansetron HCl (Zofran) Confirm Administered Dose 4 mg .ROUTE .STK-MED ONE Stop: 09/01/19 07:19 Ondansetron HCl (Zofran) 4 mg IVPUSH Q6H PRN PRN Reason: Nausea/Vomiting Phenylephrine HCl (Phenylephrine In Ns 100 Mcg/Ml) Confirm Administered Dose 1 mg .ROUTE .STK-MED ONE Stop: 09/01/19 07:10 Pneumococcal Polyvalent Vaccine (Pneumovax 23) 25 mcg IM .ONCE ONE Stop: 09/03/19 23:31 Polyethylene Glycol (Miralax) 17 gm PO DAILY [facility] Last Admin: 09/02/19 08:31 Dose: 17 gm Propofol (Diprivan 20 Ml) Confirm Administered Dose 400 mg .ROUTE .STK-MED ONE Stop: 09/01/19 06:57 Propofol (Diprivan 20 Ml) Confirm Administered Dose 200 mg .ROUTE .ST-MED ONE Stop: 09/01/19 09:05 Sodium Chloride (Saline Flush) 10 ml FLUSH ASDIRECTED PRN PRN Reason: Keep Vein Open Sodium Chloride (Saline Flush) 2.5 ml FLUSH ASDIRECTED PRN PRN Reason: Keep Vein Open Sodium Chloride (Saline Flush) 10 ml FLUSH ASDIRECTED PRN PRN Reason: Keep Vein Open Sodium Chloride (Saline Flush) 2.5 ml FLUSH ASDIRECTED PRN PRN Reason: Keep Vein Open Terazosin HCl (Hytrin) 5 mg PO BEDTIME [facility] Last Admin: 09/01/19 21:47 Dose: 5 mg Thiamine HCl (Vitamin B-1) 100 mg PO BEDTIME [facility] Last Admin: 09/01/19 20:26 Dose: 100 mg Tranexamic Acid (Cyklokapron) 2,000 mg IV ONETIME ONE Stop: 09/01/19 07:01 Last Admin: 09/01/19 11:06 Dose: Not Given
[2019-09-03] MEDS ORDERED: Pneumococcal 23-Valent Conjugate Vaccine 0.5 ML Syringe IM ONE (23:30)
== END 2019-09-02 14:20 | disposition home or self-care (01) | DRG 470 ==
LOC: MW.MS 06:36
PROVIDERS: ADMIT Orthopaedic Surgery; ATTEND Orthopaedic Surgery
PROC: 0SR901A Replacement of Right Hip Joint with Metal Synthetic Substitute, Uncemented, Open Approach (ICD-10-PCS; principal; 2019-09-01)
DX: M16.11 Unilateral primary osteoarthritis, right hip (principal); Z68.41 Body mass index [BMI] 40.0-44.9, adult; I10 Essential (primary) hypertension; E78.5 Hyperlipidemia, unspecified; E11.9 Type 2 diabetes mellitus without complications; F10.20 Alcohol dependence, uncomplicated; H91.90 Unspecified hearing loss, unspecified ear; E78.00 Pure hypercholesterolemia, unspecified; G47.30 Sleep apnea, unspecified; G89.29 Other chronic pain; M54.9 Dorsalgia, unspecified; M10.9 Gout, unspecified; G43.909 Migraine, unspecified, not intractable, without status migrainosus; F32.9 Major depressive disorder, single episode, unspecified; E66.9 Obesity, unspecified; Z90.49 Acquired absence of other specified parts of digestive tract; Z86.79 Personal history of other diseases of the circulatory system; Z79.82 Long term (current) use of aspirin; Z79.899 Other long term (current) drug therapy; Z88.8 Allergy status to other drugs, medicaments and biological substances; Z87.891 Personal history of nicotine dependence; Z99.81 Dependence on supplemental oxygen
CPT/HCPCS: 36415; 76000; 76000-26; 80048; 82962; 83735; 85014; 85018; 85027; 97110-GP; 97116-GP; 97162-GP; A9270-GY; C1776; J0690; J1885; J2001; J2250; J2270; J2370; J2405; J2704; J3010; J7040; J7120